=== PATIENT | female | born 1990 | race African-American/Black ===

== ENCOUNTER 2019-03-09 14:04 | Observation (INO) | payer MEDICAID ==
[~2019-03-09] VITALS: Ht 160 cm; Wt 74.4 kg
[2019-03-09 15:02] VITALS: BP 119/78
== END 2019-03-09 17:30 | disposition left against medical advice (07) ==
LOC: MLD 14:04
PROVIDERS: ADMIT Obstetrics & Gynecology; ATTEND Obstetrics & Gynecology
DX: O46.93 Antepartum hemorrhage, unspecified, third trimester (principal); Z3A.37 37 weeks gestation of pregnancy
CPT/HCPCS: 76805; G0378; Q0092; 81000

== ENCOUNTER 2019-03-10 07:51 | Inpatient (IN) | payer MEDICAID ==
[~2019-03-10] VITALS: Ht 160 cm; Wt 74.4 kg
--- NOTE | 2019-03-10 08:52 | NUR ---
PATIENT HAS BEEN SCREENED AND CATEGORIZED LOW NUTRITION RISK. PATIENT WILL BE SEEN WITHIN 7 DAYS OF ADMISSION. 03/16/[address]
[2019-03-10] MEDS ORDERED: LACTATED RINGERS 1,000 ML IV SCH (09:14)
[2019-03-10] MEDS ORDERED: NALBUPHINE 10 MG/ML AMP IVP PRN (09:15)
[2019-03-10] MEDS ORDERED: METHYLERGONOVINE 0.2 MG/ML AMP IM PRN ×2 (09:15→14:50)
[2019-03-10] MEDS ORDERED: OXYTOCIN 20 UNITS in LACTATED RINGERS 1,000 ML IV SCH (09:15)
[2019-03-10] MEDS ORDERED: PROMETHAZINE 25 MG/ML VIAL IVP PRN (09:15)
[2019-03-10] MEDS ORDERED: PROMETHAZINE 25 MG/ML VIAL ONE (10:12)
[2019-03-10] MEDS ORDERED: NALBUPHINE 10 MG/ML AMP ONE (10:12)
[2019-03-10 10:21] LABS: BASOPHILS % (AUTO) 0.3 % (0.0-2.0); EOSINOPHILS % (AUTO) 0.2 % (0.0-4.0); HEMATOCRIT 39.6 % (36-48); HEMOGLOBIN 13.1 g/dL (12.0-16.0); LYMPHOCYTES % (AUTO) 15.4 % (20.5-51.1); MEAN CORPUSCULAR HEMOGLOBIN 30 pg (27-31); MEAN CORPUSCULAR HGB CONC 33 g/dL (33-37); MEAN CORPUSCULAR VOLUME 90.3 fL (80-94); MONOCYTES # (AUTO) 0.3 K/uL (0.8-1.0); MONOCYTES % (AUTO) 4.9 % (1.7-9.3); NEUTROPHILS # (AUTO) 5.4 K/uL (1.8-7.7); NEUTROPHILS % (AUTO) 79.2 % (42.2-75.2); PLATELET COUNT (AUTO) 169 K/uL (140-450); RED BLOOD CELL COUNT(AUTO) 4.38 MIL/uL (4.20-5.40); RED CELL DISTRIBUTION WIDTH 13.3 % (11.6-13.7); WHITE BLOOD COUNT (AUTO) 6.8 K/uL (4.8-10.8)
[2019-03-10 10:32] LABS: APPEARANCE,URINE CLEAR (CLEAR); BILIRUBIN,URINE NEGATIVE (NEGATIVE); BLOOD, URINE 2+ (NEGATIVE); COLOR,URINE YELLOW (YELLOW); LEUKOCYTE ESTERASE ,URINE 1+ (NEGATIVE); NITRITE, URINE NEGATIVE (NEGATIVE); UGLUCOSE NEGATIVE (NEGATIVE)
[2019-03-10 10:34] LABS: POTASSIUM 3.7 mmol/L (3.5-5.1)
[2019-03-10 10:35] LABS: CREATININE 0.6 mg/dL (0.6-1.3)
[2019-03-10 10:36] LABS: ALBUMIN 2.3 g/dL (3.4-5.0); TOTAL BILIRUBIN 0.3 mg/dL (0.0-1.0)
[2019-03-10 10:37] LABS: BARBITURATE, URINE NEG. ng/ml (NEG <=200); BENZODIAZEPINE, URINE NEG. ng/mL (NEG <=200); CANNABINOID, URINE POS. ng/mL (NEG <=50); COCAINE, URINE NEG. ng/mL (NEG <=300); OPIATE, URINE NEG. ng/mL (NEG <=2000); PHENCYCLIDINE SCREEN,URINE NEG. ng/mL (NEG <=25)
[2019-03-10] MEDS ORDERED: AMPICILLIN 2,000 MG VIAL ONE (10:37)
[2019-03-10] MEDS ORDERED: AMPICILLIN 2,000 MG in NACL 0.9% 100 ML IV SCH (11:00)
[2019-03-10 12:03] LABS: ANION GAP 14.2 (8-16); CARBON DIOXIDE 21.5 mmol/L (21-32)
[2019-03-10] MEDS ORDERED: OXYTOCIN 20 UNITS/LR PREMIX 1,000 ML IV ONE (13:32)
[2019-03-10] MEDS ORDERED: LIDOCAINE 1% 500 MG/50 ML VIAL ONE (13:42)
[2019-03-10] MEDS ORDERED: METHYLERGONOVINE 0.2 MG TAB PO PRN (14:50)
[2019-03-10] MEDS ORDERED: BENZOCAINE/MENTHOL 20%-0.5% 60 GM CAN TP PRN (14:50)
[2019-03-10] MEDS ORDERED: MEASLES, MUMPS, AND RUBELLA 1 VIAL SQVAC PRN (14:50)
[2019-03-10] MEDS ORDERED: oxyCODONE/APAP 5/325 MG 1 TAB TAB PO SCH (15:00)
[2019-03-10] MEDS ORDERED: AMPICILLIN 1,000 MG in NACL 0.9% 50 ML IV SCH (15:00)
[2019-03-10] MEDS: IBUPROFEN 800 MG TAB PO PRN (17:03)
[2019-03-10] MEDS ORDERED: ACETAMINOPHEN 325 MG TAB PO PRN (19:45)
[2019-03-10] MEDS ORDERED: ACETAMINOPHEN EXTRA STRENGTH 500 MG TAB PO PRN (19:50)
[2019-03-11] MEDS: IBUPROFEN 800 MG TAB PO PRN ×2 (01:14→20:09)
[2019-03-11 06:07] LABS: HEPATITIS B SURFACE ANTIGEN Negative (Negative)
[2019-03-11 06:56] LABS: ALBUMIN 2.3 g/dL (3.4-5.0); ANION GAP 11.8 (8-16); CREATININE 0.6 mg/dL (0.6-1.3); POTASSIUM 3.8 mmol/L (3.5-5.1); TOTAL BILIRUBIN 0.3 mg/dL (0.0-1.0)
[2019-03-11 07:08] LABS: BASOPHILS % (AUTO) 0.1 % (0.0-2.0); EOSINOPHILS % (AUTO) 0.4 % (0.0-4.0); HEMATOCRIT 36.7 % (36-48); HEMOGLOBIN 12.3 g/dL (12.0-16.0); LYMPHOCYTES # (AUTO) 1.6 K/uL (2.5-16.5); LYMPHOCYTES % (AUTO) 17.1 % (20.5-51.1); MEAN CORPUSCULAR HEMOGLOBIN 30 pg (27-31); MEAN CORPUSCULAR HGB CONC 34 g/dL (33-37); MEAN CORPUSCULAR VOLUME 90.5 fL (80-94); MONOCYTES # (AUTO) 0.7 K/uL (0.8-1.0); MONOCYTES % (AUTO) 6.9 % (1.7-9.3); NEUTROPHILS # (AUTO) 7.2 K/uL (1.8-7.7); NEUTROPHILS % (AUTO) 75.5 % (42.2-75.2); PLATELET COUNT (AUTO) 164 K/uL (140-450); RED BLOOD CELL COUNT(AUTO) 4.05 MIL/uL (4.20-5.40); WHITE BLOOD COUNT (AUTO) 9.5 K/uL (4.8-10.8)
[2019-03-12] MEDS: IBUPROFEN 800 MG TAB PO PRN (11:50)
== END 2019-03-12 14:05 | disposition home or self-care (01) | DRG 560 ==
LOC: MLD 07:51 → MFCC 20:14
PROVIDERS: ADMIT Obstetrics & Gynecology; ATTEND Obstetrics & Gynecology
PROC: 10E0XZZ Delivery of Products of Conception, External Approach (ICD-10-PCS; principal; 2019-03-10)
DX: O99.824 Streptococcus B carrier state complicating childbirth (principal); O69.81X0 Labor and delivery complicated by cord around neck, without compression, not applicable or unspecified; Z37.0 Single live birth; O70.0 First degree perineal laceration during delivery; Z3A.38 38 weeks gestation of pregnancy; Z28.21 Immunization not carried out because of patient refusal
CPT/HCPCS: 36415; 59409; 80053; 80305; 81001; 85025; 86592; 86762; 86886; 86900; 86901; 87086; 87340; J0290; J2001; J2300; J2550; J2590; J7120

== ENCOUNTER 2022-06-20 11:57 | Emergency (ER) | payer MEDICAID ==
[~2022-06-20] VITALS: Ht 160 cm; Wt 72.6 kg
[2022-06-20 12:05] VITALS: BP 116/68
[2022-06-20] MEDS ORDERED: ACETAMINOPHEN EXTRA STRENGTH 500 MG TAB PO ONE (12:35)
[2022-06-20 13:29] LABS: APPEARANCE,URINE CLEAR (CLEAR); BILIRUBIN,URINE NEGATIVE (NEGATIVE); BLOOD, URINE NEGATIVE (NEGATIVE); COLOR,URINE YELLOW (YELLOW); LEUKOCYTE ESTERASE ,URINE NEGATIVE (NEGATIVE); NITRITE, URINE NEGATIVE (NEGATIVE); UGLUCOSE NEGATIVE (NEGATIVE)
[2022-06-20] MEDS ORDERED: ACET-10509 PO (14:08)
[2022-06-20 14:32] VITALS: BP 110/67
== END 2022-06-20 14:32 | disposition home or self-care (01) ==
LOC: MED 11:57
DX: O26.892 Other specified pregnancy related conditions, second trimester (principal); M54.50 Low back pain, unspecified; Z3A.15 15 weeks gestation of pregnancy
CPT/HCPCS: 76805; 81025; 99284; Q0092